=== PATIENT | male | born 1965 | race Caucasian/White ===

== ENCOUNTER 2019-02-11 08:41 | Emergency (ER) | payer BC, MEDICAID ==
[~2019-02-11] VITALS: Ht 167.6 cm; Wt 92.5 kg
[2019-02-11] MEDS ORDERED: ASPIRIN 81 MG TAB.CHEW ONE (08:58)
--- NOTE | 2019-02-11 08:59 | NUR ---
Patient came in to the ER c/o chest pressure since this morning. On room air, ambulatory, breathing evenly and unlabored. Connected to the monitor and pulse ox. kept comfortable, will continue to monitor accordingly.
[2019-02-11] MEDS ORDERED: ASPIRIN 81 MG TAB.CHEW PO ONE (09:00)
--- NOTE | 2019-02-11 09:02 | NUR ---
Dr. Sinha at bedside for eval.
[2019-02-11 09:03] LABS: BASOPHILS # (AUTO) 0.1 /CMM (0.0-0.2); BASOPHILS % (AUTO) 0.6 % (0.0-2.0); EOSINOPHILS % (AUTO) 5.2 % (0.0-6.0); HEMATOCRIT 48 % (39-51); HEMOGLOBIN 16.8 g/dL (13.5-17.5); LYMPHOCYTES # (AUTO) 2.4 /CMM (0.8-4.8); LYMPHOCYTES % (AUTO) 28.3 % (20.0-44.0); MEAN CORPUSCULAR HGB CONC 35 g/dl (31.0-36.0); MEAN CORPUSCULAR VOLUME 89 fL (80-96); MONOCYTES # (AUTO) 0.9 /CMM (0.1-1.30); MONOCYTES % (AUTO) 10.1 % (2.0-12.0); NEUTROPHILS # (AUTO) 4.8 /CMM (1.8-8.9); NEUTROPHILS % (AUTO) 55.8 % (43.0-81.0); PLATELET COUNT (AUTO) 216 /CMM (150-450); RED BLOOD CELL COUNT(AUTO) 5.46 MIL/uL (4.5-6.0); WHITE BLOOD COUNT (AUTO) 8.6 K/uL (4.3-11.0)
--- NOTE | 2019-02-11 09:07 | NUR ---
MD cancelled the aspirin order due to patient had asa 325mg given at the urgent care prior coming to ER.
[2019-02-11 09:09] LABS: CALCIUM, SERUM 9.5 mg/dL (8.5-10.1); CARBON DIOXIDE 27 mmol/L (21-32); CHLORIDE 106 mmol/L (98-107); CREATININE 1.1 mg/dL (0.6-1.3); GLUCOSE 106 mg/dL (74-106); POTASSIUM 4.1 mmol/L (3.5-5.1); SODIUM SERUM 140 mmol/L (136-145); UREA NITROGEN, BLOOD 14 mg/dL (7-18)
--- NOTE | 2019-02-11 10:56 | NUR ---
PAGED [facility].
--- NOTE | 2019-02-11 11:45 | NUR ---
report given to Nuzhat CLANCY for eneida.
[2019-02-11 12:45] VITALS: BP 133/65
--- NOTE | 2019-02-11 12:46 | NUR ---
Patient discharged to home in stable condition. Written and verbal after care instructions given. Patient verbalizes understanding of instruction.IV removed. Catheter intact and site benign. Pressure and 4x4 applied to site. No bleeding noted.
== END 2019-02-11 12:46 | disposition home or self-care (01) ==
LOC: ER 08:41 → UNDOADMIN 11:25 → TELE1 11:25 → ER 12:46
DX: R07.89 Other chest pain (principal); E78.00 Pure hypercholesterolemia, unspecified
CPT/HCPCS: 36415; 71045-TC; 80048-TC; 84484-TC; 85025-TC; 85378-TC; 87081-TC

== ENCOUNTER 2024-03-01 19:35 | Emergency (ER) | payer MEDICAID ==
[~2024-03-01] VITALS: Ht 167.6 cm; Wt 92.5 kg
[2024-03-01] MEDS: PANTOPRAZOLE 40 MG VIAL IV ONE (21:21)
[2024-03-01] MEDS ORDERED: PANTOPRAZOLE 40 MG VIAL ONE (21:22)
[2024-03-01] MEDS: PANTOPRAZOLE 80 MG in IV NS 0.9% 100 ML IV ONE (21:30)
[2024-03-01 21:33] LABS: BASOPHILS % (AUTO) 0.5 % (0.0-2.0); EOSINOPHILS # (AUTO) 0.2 K/uL (0.0-0.7); EOSINOPHILS % (AUTO) 2.2 % (0.0-6.0); HEMATOCRIT 47 % (39-51); HEMOGLOBIN 16.8 g/dL (13.5-17.5); LYMPHOCYTES # (AUTO) 1.8 K/uL (0.8-4.8); LYMPHOCYTES % (AUTO) 26.3 % (20.0-44.0); MEAN CORPUSCULAR HEMOGLOBIN 32 PG (26.0-33.0); MEAN CORPUSCULAR HGB CONC 36 g/dl (31.0-36.0); MEAN CORPUSCULAR VOLUME 88 fL (80-96); MONOCYTES # (AUTO) 0.8 K/uL (0.1-1.30); NEUTROPHILS # (AUTO) 4.2 K/uL (1.8-8.9); PLATELET COUNT (AUTO) 190 K/uL (150-450); RED BLOOD CELL COUNT(AUTO) 5.29 MIL/uL (4.5-6.0); RED CELL DISTRIBUTION WIDTH 14.1 % (11.5-15.0)
[2024-03-01 21:45] LABS: CALCIUM, SERUM 9.3 mg/dL (8.5-10.1); POTASSIUM 3.7 mmol/L (3.5-5.1)
[2024-03-01 21:52] LABS: ALBUMIN 4.1 g/dL (3.4-5.0); BILIRUBIN,DIRECT 0.3 mg/dL (0.0-0.2); BILIRUBIN,TOTAL 1.6 mg/dL (0.2-1.0); TOTAL PROTEIN, SERUM 7.4 g/dL (6.4-8.2)
[2024-03-01 22:03] LABS: INR 1.13 (0.91-1.10); PROTHROMBIN TIME 11.9 SECS (9.2-11.1)
[2024-03-01] MEDS ORDERED: IOHEXOL-300 100 ML VIAL IV ONE (22:20)
[2024-03-01] MEDS ORDERED: IV NS 0.9% 250 ML IV ONE (22:22)
[2024-03-01] MEDS ORDERED: ONDA4TAB5 PO (23:39)
[2024-03-02] VITALS: BP 122/88; TEMP 98.2; O2SAT 97
== END 2024-03-02 | disposition home or self-care (01) ==
LOC: ER 19:44
DX: R11.10 Vomiting, unspecified (principal); R19.7 Diarrhea, unspecified; E80.6 Other disorders of bilirubin metabolism; E78.00 Pure hypercholesterolemia, unspecified; K21.9 Gastro-esophageal reflux disease without esophagitis; Z85.51 Personal history of malignant neoplasm of bladder; Z90.49 Acquired absence of other specified parts of digestive tract
CPT/HCPCS: 99285; 74177; 96374; 76705; 93005; 85025; 80048; 83690; 80076; 36415; 85730; 86850; J7030 ×2; J7050; J2470 ×2; Q9967

== ENCOUNTER 2025-02-18 14:35 | Emergency (ER) | payer MEDICAID ==
[~2025-02-18] VITALS: Ht 167.6 cm; Wt 93.9 kg
[~2025-02-18 14:35] MED LIST: ONDA4TAB5 PO
[2025-02-18 15:13] LABS: PLATELET COUNT (AUTO) 197 K/uL (150-450); RED BLOOD CELL COUNT(AUTO) 5.03 MIL/uL (4.5-6.0); RED CELL DISTRIBUTION WIDTH 13.7 % (11.5-15.0); WHITE BLOOD COUNT (AUTO) 7.1 K/uL (4.3-11.0)
[2025-02-18 15:20] LABS: CREATININE 1.0 mg/dL (0.6-1.3); SODIUM SERUM 142 mmol/L (136-145); UREA NITROGEN, BLOOD 16 mg/dL (7-18)
[2025-02-18 15:39] LABS: CALCIUM, SERUM 8.8 mg/dL (8.5-10.1)
[2025-02-18 17:53] VITALS: BP 123/76; TEMP 98.2; O2SAT 96
== END 2025-02-18 17:54 | disposition home or self-care (01) ==
LOC: ER 14:49
DX: R07.89 Other chest pain (principal); M79.621 Pain in right upper arm; E78.00 Pure hypercholesterolemia, unspecified
CPT/HCPCS: 36415; 71045-TC; 80048-TC; 84484-TC; 85025-TC